=== PATIENT | male | born 2005 | race Caucasian/White ===

== ENCOUNTER 2024-03-03 22:21 | Emergency (ER) | payer SELFPAY ==
[2024-03-03 22:50] VITALS: BMI 21.4
[2024-03-03] MEDS: NSS 1000 IV (23:00)
[2024-03-03] MEDS: ZOFRAN 4 MG IV (23:00)
[2024-03-03] MEDS: TORADOL 15 MG IV (23:02)
--- NOTE | 2024-03-03 23:09 | ED.GENMED ---
History of Present Illness
<Chandrika Scales MD, Resident - Last Filed: 03/04/24 16:12>
General
Chief Complaint: Abdominal Pain
Source: patient and family
Exam Limitations: none
Time Seen by Provider: 03/03/24 22:33
Nursing documentation reviewed up to this point in time: agreed with
History of Present Illness
History of Present Illness:
18 yr M with no significant PMH who presents to the ED c/o Generalized aches, fever/rigors, watery diarrhea, nausea/vomiting and crampy lower abdominal pain. He noticed headache and generalized aches two days ago, followed by nausea/vomiting and
diarrhea the next day. Severe crampy abdominal pain in the past day.
He recalls having some blue cheese with fries with his dad at an 'unsanitary' restaurant, but father who is present at bedside has had no symptoms. No recent illness, recent travel, or sick contacts. He had initial COVID vaccines but no boosters.
Past History
<Chandrika Scales MD, Resident - Last Filed: 03/04/24 16:12>
Past History
ED Past Medical History: None
ED Past Surgical History: None
Patient has exhibited threatening behavior?: No
Social History
Tobacco: Non-smoker
Alcohol: Occasional
Drug: None
Family History
Family History: Other (not pertinent)
Review of Systems
<Chandrika Scales MD, Resident - Last Filed: 03/04/24 16:12>
Review of Systems
Allergies reviewed?: Yes
Constitutional: Reports fever, fatigue, chills and other (generalized aches)
ABD/GI: Reports abdominal pain, nausea, vomiting and diarrhea; Denies bloody stools or black stools
Phy Exam
<Chandrika Scales MD, Resident - Last Filed: 03/04/24 16:12>
General Physical Exam
General Presentation: severe distress
General Skin: warm and dry
General Mental: alert
General Hydration: dry mucous membranes
Cardiovascular Exam
Cardiovascular Exam: regular rate/rhythm, no gallop and no murmur
Pulmonary Exam
Pulmonary Exam: lungs clear, no respiratory distress, no rales, no crackles, no rhonchi and no wheezing
Respirations: rapid
Gastrointestinal Exam
Gastrointestinal Exam: normal bowel sounds, non distended, guarding and tender (lower abdomen and RUQ )
Course
<Chandrika Scales MD, Resident - Last Filed: 03/04/24 16:12>
Orders/Labs/Results
Orders:
Orders
03/03/24 22:57
IV Insert/Care/Rem.- Treatment PRN
Ketorolac [Toradol] 15 mg IV NOW STA
Ondansetron Injectable [Zofran] 4 mg IV NOW STA
03/03/24 22:58
0.9% Sodium Chloride 1000 ml [Nss] 1,000 ml IV BOLUS
03/03/24 23:07
Iohexol [Omnipaque] See Protocol PO NOW STA
03/03/24 23:12
Complete Blood Count/With Diff Urgent
Comprehensive Metabolic Panel Urgent
Lipase Urgent
Manual Differential Urgent
03/03/24 23:48
HYDROmorphone [Dilaudid] 0.5 mg IV NOW STA
03/04/24 00:00
CT Abd/pelvis W Iv Cont Urgent
Reason For Exam: severe abdominal pain
03/04/24 01:02
CDIFF [C difficile Antigen & Toxins] Urgent
MINAL Source: Feces/Stool
Specimen Description:
Date Specimen was Collected: 03/04/24
Time Specimen was Collected: 00:59
Stool Culture Urgent
MINAL Source: Feces/Stool
Specimen Description:
Date Specimen was Collected: 03/04/24
Time Specimen was Collected: 00:59
03/04/24 02:00
Dextrose 5%/0.9%Sodchl 1000 ml [D5/0.9% Sodium Chloride] 1,000 ml IV 1,000 mls/hr
Abnormal Lab Results
03/03/24
23:12
RDW 11.3 L %
(11.5-14.5)
Segmented Neutrophils 34 L %
(42-75)
Band Neutrophils 43 H %
(0-3)
Lymphocytes (Manual) 11 L %
(20-51)
Chloride 95 L mmol/L
(98-107)
Carbon Dioxide 19 L mmol/L
(22-30)
BUN 28 H mg/dl
(9-20)
Creatinine 1.6 H mg/dL
(0.7-1.3)
Glucose 144 H mg/dl
(70-99)
Total Bilirubin 1.7 H mg/dl
(0.2-1.3)
Albumin 5.3 H g/dl
(3.5-5.0)
03/03/24 23:12
03/03/24 23:12
Vital Signs
Initial and Last Documented VS:
Initial Vital Signs
Temp Pulse Resp Pulse Ox
98.6 F 86 28 98
03/03/24 22:22 03/03/24 22:22 03/03/24 22:22 03/03/24 22:22
Last Documented Vital Signs
Temp Pulse Resp BP Pulse Ox
98.6 F 86 12 113/62 99
03/03/24 22:22 03/04/24 04:00 03/04/24 04:00 03/04/24 04:00 03/04/24 04:00
<Liu Gu DO - Last Filed: 03/04/24 03:12>
Orders/Labs/Results
Orders:
Orders
03/03/24 22:57
IV Insert/Care/Rem.- Treatment PRN
Ketorolac [Toradol] 15 mg IV NOW STA
Ondansetron Injectable [Zofran] 4 mg IV NOW STA
03/03/24 22:58
0.9% Sodium Chloride 1000 ml [Nss] 1,000 ml IV BOLUS
03/03/24 23:07
Iohexol [Omnipaque] See Protocol PO NOW STA
03/03/24 23:12
Complete Blood Count/With Diff Urgent
Comprehensive Metabolic Panel Urgent
Lipase Urgent
Manual Differential Urgent
03/03/24 23:48
HYDROmorphone [Dilaudid] 0.5 mg IV NOW STA
03/04/24 00:00
CT Abd/pelvis W Iv Cont Urgent
Reason For Exam: severe abdominal pain
03/04/24 01:02
CDIFF [C difficile Antigen & Toxins] Urgent
MINAL Source: Feces/Stool
Specimen Description:
Date Specimen was Collected: 03/04/24
Time Specimen was Collected: 00:59
Stool Culture Urgent
MINAL Source: Feces/Stool
Specimen Description:
Date Specimen was Collected: 03/04/24
Time Specimen was Collected: 00:59
03/04/24 02:00
Dextrose 5%/0.9%Sodchl 1000 ml [D5/0.9% Sodium Chloride] 1,000 ml IV 1,000 mls/hr
Abnormal Lab Results
03/03/24
23:12
RDW 11.3 L %
(11.5-14.5)
Segmented Neutrophils 34 L %
(42-75)
Band Neutrophils 43 H %
(0-3)
Lymphocytes (Manual) 11 L %
(20-51)
Chloride 95 L mmol/L
(98-107)
Carbon Dioxide 19 L mmol/L
(22-30)
BUN 28 H mg/dl
(9-20)
Creatinine 1.6 H mg/dL
(0.7-1.3)
Glucose 144 H mg/dl
(70-99)
Total Bilirubin 1.7 H mg/dl
(0.2-1.3)
Albumin 5.3 H g/dl
(3.5-5.0)
03/03/24 23:12
03/03/24 23:12
Vital Signs
Initial and Last Documented VS:
Initial Vital Signs
Temp Pulse Resp Pulse Ox
98.6 F 86 28 98
03/03/24 22:22 03/03/24 22:22 03/03/24 22:22 03/03/24 22:22
Last Documented Vital Signs
Temp Pulse Resp BP Pulse Ox
98.6 F 86 12 113/62 99
03/03/24 22:22 03/04/24 04:00 03/04/24 04:00 03/04/24 04:00 03/04/24 04:00
<Chandrika Scales MD, Resident - Last Filed: 03/04/24 16:12>
MDM/Problems Addressed
Differential Diagnosis Includes:
Appendicitis with/without rupture, viral gastroenteritis, colitis
MDM/Problems Addressed:
Appears to be in severe distress from abdominal pain. Guarding noted on abd exam. Concern for acute abdominal process. Will get CBC, chemistries, lipase, and CT abd/pel with IV and oral contrast. Poor PO intake and dry mucous membranes in context of
copious watery diarrhea and vomiting, Will give NS bolus. Zofran for nausea/vomiting and Toradol for pain management - will escalate med if insufficient. Will reassess shortly.
Pain still uncontrolled with Toradol 15mg, pain radiating to back. IV Dilaudid given.
<Chandrika Scales MD, Resident - Last Filed: 03/04/24 16:12>
*Critical Care Note
Total Time (30-74mins, 75-104mins- exclusive of procedures): Not Applicable
ED Attending Note
<Chandrika Scales MD, Resident - Last Filed: 03/04/24 16:12>
-
Portions of this chart may have been created with voice recognition software.� Occasional wrong word or��sound alike� substitutions may have occurred due to the inherent limitations of voice recognition software.
<Liu JennGen Gu, DO - Last Filed: 03/04/24 03:12>
ED Attending Note
Patient seen and examined by attending physician: Yes
I performed a history and physical exam of patient and discussed management with resident, I reviewed resident's note and agree with documented findings and plan of care.: Yes
ED Attending Note:
19-year-old male presents with nausea, vomiting and diarrhea. Patient had voluminous diarrhea over the past 24 hours or so. He is also had multiple episodes of nausea vomiting. He is not been able to keep anything down. Patient presents
appearing very uncomfortable due to abdominal cramping. He is concerned he may have eaten something at a restaurant that made him ill. In particular he was concerned that blue cheese that he had as part of a appetizer seem bad.
General: Awake, Alert, Oriented X3. Appears uncomfortable
Vitals: unremarkable
Head: Atraumatic
Eyes: Pupils equal, EOMI
Throat: Airway intact, no exudates, dry mucosa
Neck: Trachea midline
Lungs: Clear and equal b/l
Heart: Regular rate, no murmurs
Abdomen: No significant reproducible tenderness, no rebound
Neuro: Nonfocal
Skin: Warm, dry, no rash
Extremities: pulses equal b/l, no edema
Patient presents with significant abdominal cramping in addition to nausea vomiting or diarrhea. Patient treated with IV fluids, IV analgesia and IV antiemetics. A CT was obtained with IV contrast and some oral contrast and this showed no evidence
of appendicitis. There was mild to moderate diffuse colitis. Patient's labs are otherwise significant for normal white count, elevated BUN and creatinine as well as mild increase in the anion gap. However patient appears much better after IV
hydration. Abdominal cramping is almost gone. Patient has never had similar episodes. I think inflammatory bowel disease is extremely unlikely. Patient very likely has an infectious diarrhea. Patient looks improved enough to be discharged. The
findings on the CT are appreciated but given his improved clinical state I do not believe we need to treat this specifically. This is likely viral and therefore we will withhold antibiotics. The lack of bloody stool also indicates this is more
likely a viral illness. Patient has not traveled anywhere outside of the local community.
Discharge Plan
Departure
Patient Disposition: Home (Routine Discharge)
Date of Disposition: 03/04/24
Time of Disposition: 03:12
Patient with high blood pressure during this ER visit?: No
Condition: Good
Discharge Problem:
Acute diarrhea, Nausea & vomiting, Acute dehydration
Instructions: Diarrhea in teens and adults, Clear Liquid Diet, Nausea and Vomiting, Adult (DC)
Prescriptions:
New
ondansetron 4 mg tablet,disintegrating
4 mg PO TID PRN (Reason: nausea and vomiting) Qty: 14 0RF
dicyclomine 20 mg tablet
20 mg PO QID PRN (Reason: abdominal cramping) Qty: 14 0RF
Referrals:
Leo Shaw MD [Family Provider] -
Interventions
Interventions:
*Risk Screen - Suicide Last Done: 03/03/24 22:36
*General Assessment Last Done: 03/03/24 22:36
*Neglect/Abuse Screening Last Done: 03/03/24 22:36
ED- Fall Risk Assessment Last Done: 03/03/24 22:36
*ED COVID-19 Vaccine History Last Done: 03/03/24 22:36
*Nursing Disposition Last Done: 03/04/24 04:00
SC-Ndcyxm-Cuzobmunjz Assessment Last Done: 03/03/24 22:36
Discharge Date and Time
Discharge Date/Time: 03/04/24 04:00
Print Language: GREEK
[2024-03-03 23:40] LABS: ALT (SGPT) 22 U/L (0-50); AST (SGOT) 32 U/L (17-59); Albumin 5.3 g/dl (3.5-5.0); Alkaline Phosphatase 71 U/L (38-126); Blood Urea Nitrogen 28 mg/dl (9-20); Calcium 10.2 mg/dl (8.4-10.2); Carbon Dioxide 19 mmol/L (22-30); Chloride 95 mmol/L (98-107); Estimated Creatinine Clearance 61 ml/min; Glucose 144 mg/dl (70-99); Lipase 76 U/L (23-300); Sodium 137 mmol/L (135-145); Total Bilirubin 1.7 mg/dl (0.2-1.3); Total Protein 7.8 g/dl (6.3-8.2); eGFR > 60.00
[2024-03-03] MEDS: OMNIPAQUE 50 ML PO (23:42)
[2024-03-03 23:46] LABS: Hematocrit 48.2 % (39.0-52.0); Hemoglobin 17.6 g/dL (13.0-18.0); Mean Corp Hgb Conc. 36.5 g/dL (33.0-37.0); Mean Corpuscular Hgb 29.8 pg (27.0-31.0); Mean Corpuscular Volume 81.6 fL (80.0-94.0); Mean Platelet Volume 10.1 fL (7.4-10.4); Platelet Count 203 10^3/uL (130-400); Red Blood Cell Count 5.91 10^6/uL (4.70-6.10); Red Cell Dist. Width 11.3 % (11.5-14.5); White Blood Cell Count 7.9 10^3/uL (4.8-10.8)
[2024-03-03] MEDS: DILAUDID 0.5 MG IV (23:52)
[2024-03-04] VITALS (7 sets, daily range): BP systolic 98–120; BP diastolic 48–62
[2024-03-04 00:47] LABS: Atypical Lymphocytes 1 %; Band Neutrophils 43 % (0-3); Lymphocytes 11 % (20-51); Metamyelocytes 2 % (-); Monocytes 9 % (2-9); Normal RBC Morphology Yes; Platelets Checked Yes; Segmented Neutrophils 34 % (42-75); Total Cells Counted 100; Toxic Granulation 1+
[2024-03-04] MEDS: D5/0.9% SODIUM CHLORIDE 1000 IV (02:18)
== END 2024-03-04 04:00 | disposition home or self-care (01) ==
LOC: EMR 22:21
PROVIDERS: EMERGENCY PHYSICIAN Emergency Medicine; FAMILY PHYSICIAN Student in an Organized Health Care Education/Training Program
DX: R11.2 Nausea with vomiting, unspecified (principal); R19.7 Diarrhea, unspecified; R50.9 Fever, unspecified; R53.83 Other fatigue; R10.9 Unspecified abdominal pain; E86.0 Dehydration; Z86.16 Personal history of COVID-19
CPT/HCPCS: 99285; 96374; 96375 ×2; 96361 ×2; 74177; 80053; 83690; 85025; 87045; 87046; 87077; 87184; 87186; 87324; 87427; 87449; Q9967

== ENCOUNTER 2024-03-04 14:17 | Emergency (ER) | payer SELFPAY ==
[2024-03-04 14:20] VITALS: BP 114/56
--- NOTE | 2024-03-04 16:09 | ED.GENMED ---
Addendum entered and electronically signed by Ravi Lemus PA-C 03/08/24 07:36:
Stool cultures demonstrate Salmonella species. Attempted to call all numbers listed on the chart to relay this information, however there was no answer. Left message to call back
Original Note:
History of Present Illness
General
Chief Complaint: Abdominal Symptoms
Source: patient
Time Seen by Provider: 03/04/24 15:51
History of Present Illness
History of Present Illness:
19-year-old male presents for reevaluation. He was here last evening found to have colitis. He was symptomatically improved after interventions yesterday however shortly after returning home from the hospital he developed more nausea and diarrhea.
His pain is improved. He still notes a residual fever. CT yesterday demonstrated colitis. He denies any blood in the stool. No recent antibiotics. No known sick contacts. C. difficile study yesterday was negative stool cultures are pending
from yesterday.
Past History
Past History
ED Past Medical History: None
ED Past Surgical History: None
Patient has exhibited threatening behavior?: No
Social History
Tobacco: Non-smoker
Alcohol: Occasional
Drug: None
Family History
Family History: Other (not pertinent)
Phy Exam
Physical Exam
Physical Exam:
General: Well-appearing male no acute respiratory distress
HEENT: Normocephalic atraumatic
Heart: Regular rate and rhythm no murmurs
Lungs: Clear no wheeze
Abdomen is soft nontender nondistended no guarding or rebound
Extremities: No cyanosis
Course
Orders/Labs/Results
Orders:
Orders
03/04/24 16:08
0.9% Sodium Chloride 1000 ml [Nss] 1,000 ml IV BOLUS
Ondansetron Injectable [Zofran] 4 mg IV NOW STA
03/04/24 16:20
Complete Blood Count/With Diff Urgent
Comprehensive Metabolic Panel Urgent
03/04/24 17:06
0.9% Sodium Chloride 1000 ml [Nss] 1,000 ml IV BOLUS
Abnormal Lab Results
03/04/24
16:20
WBC 3.9 L 10^3/uL
(4.8-10.8)
Hct 37.9 L %
(39.0-52.0)
MCV 79.3 L fL
(80.0-94.0)
Absolute Lymphs (auto) 0.8 L 10^3/uL
(1.2-3.4)
Lymphocytes % 19.1 L %
(20.5-51.1)
Monocytes % 13.0 H %
(1.7-9.3)
Potassium 3.3 L mmol/L
(3.5-5.1)
Glucose 122 H mg/dl
(70-99)
Total Protein 6.1 L D g/dl
(6.3-8.2)
03/04/24 16:20
03/04/24 16:20
Vital Signs
Initial and Last Documented VS:
Initial Vital Signs
Temp Pulse Resp BP Pulse Ox
98.3 F 73 18 114/56 99
03/04/24 14:20 03/04/24 14:20 03/04/24 14:20 03/04/24 14:20 03/04/24 14:20
Last Documented Vital Signs
Temp Pulse Resp BP Pulse Ox
98.3 F 73 18 114/56 99
03/04/24 14:20 03/04/24 14:20 03/04/24 14:20 03/04/24 14:20 03/04/24 14:20
MDM/Problems Addressed
Differential Diagnosis Includes:
Increased nausea vomiting and diarrhea. Diarrhea is nonbloody. He notes fatigue. He notes decreased urinary output as well. I reviewed prior record including CT scan of abdomen as well as stool studies from yesterday. I also reviewed reviewed
laboratory analysis from yesterday. Will recheck kidney functions today hydrate give Zofran for symptoms.
Consider reimaging abdomen however not indicated given improvement of pain and benign exam
*Critical Care Note
Total Time (30-74mins, 75-104mins- exclusive of procedures): Not Applicable
Update Note
Update Note:
Patient again feeling significantly improved after treatment here. He received 2 L of fluid and is now tolerating oral fluids. Creatinine improved from yesterday. Suspect viral illness. Stool studies pending. Patient requests to go home
ED Attending Note
-
Portions of this chart may have been created with voice recognition software.� Occasional wrong word or��sound alike� substitutions may have occurred due to the inherent limitations of voice recognition software.
Discharge Plan
Departure
Patient Disposition: Home (Routine Discharge)
Date of Disposition: 03/04/24
Time of Disposition: 18:03
Patient with high blood pressure during this ER visit?: No
Discharge Problem:
Acute diarrhea
Instructions: Nausea and Vomiting, Adult (DC)
Prescriptions:
No Action
ondansetron 4 mg tablet,disintegrating
4 mg PO TID PRN (Reason: nausea and vomiting) Qty: 14 0RF
dicyclomine 20 mg tablet
20 mg PO QID PRN (Reason: abdominal cramping) Qty: 14 0RF
Referrals:
NONE,* [Family Provider] -
Activity Restrictions/Additional Instructions:
Continue drinking plenty clear liquids. Use Zofran if needed for nausea. Start with a bland diet and advance as tolerated
Interventions
Interventions:
MR-Cdcnwd-Lkudcpvmhh Assessment Last Done: 03/04/24 16:27
Discharge Date and Time
Print Language: [id number]
[2024-03-04] MEDS: NSS 1000 IV ×2 (16:21→17:14)
[2024-03-04] MEDS: ZOFRAN 4 MG IV (16:23)
[2024-03-04 16:34] LABS: Hematocrit 37.9 % (39.0-52.0); Hemoglobin 13.8 g/dL (13.0-18.0); Mean Corp Hgb Conc. 36.4 g/dL (33.0-37.0); Mean Corpuscular Hgb 28.9 pg (27.0-31.0); Mean Corpuscular Volume 79.3 fL (80.0-94.0); Mean Platelet Volume 9.9 fL (7.4-10.4); Platelet Count 156 10^3/uL (130-400); Red Blood Cell Count 4.78 10^6/uL (4.70-6.10); Red Cell Dist. Width 11.5 % (11.5-14.5); White Blood Cell Count 3.9 10^3/uL (4.8-10.8)
[2024-03-04 16:49] LABS: ALT (SGPT) 17 U/L (0-50); AST (SGOT) 24 U/L (17-59); Albumin 3.7 g/dl (3.5-5.0); Alkaline Phosphatase 54 U/L (38-126); Blood Urea Nitrogen 17 mg/dl (9-20); Carbon Dioxide 23 mmol/L (22-30); Chloride 101 mmol/L (98-107); Glucose 122 mg/dl (70-99); Potassium 3.3 mmol/L (3.5-5.1); Sodium 137 mmol/L (135-145); Total Bilirubin 0.9 mg/dl (0.2-1.3); Total Protein 6.1 g/dl (6.3-8.2); eGFR > 60.00
[2024-03-04 16:53] LABS: % Basophils 0.5 % (0-2); % Immature Granulocytes 0.3 % (0-0.5); % Lymphocytes 19.1 % (20.5-51.1); % Neutrophils 67.1 % (42.2-75.2); Absolute Lymphocytes 0.8 10^3/uL (1.2-3.4); Absolute Monocytes 0.5 10^3/uL (0.1-0.6); Absolute Neutrophils 2.6 10^3/uL (1.4-6.5); Nucleated Red Blood Cells % 0 % (-)
[2024-03-04 18:08] VITALS: BP 114/57
== END 2024-03-04 18:09 | disposition home or self-care (01) ==
LOC: EMR 14:17
PROVIDERS: Physician Assistant; EMERGENCY PHYSICIAN Emergency Medicine
DX: A02.0 Salmonella enteritis (principal); R11.0 Nausea
CPT/HCPCS: 96374; 96361; 99284; 80053; 85025